=== PATIENT | female | born 1950 | race Caucasian/White ===

== ENCOUNTER 2018-12-23 08:25 | Emergency (ER) | payer MEDICARE, BC ==
[~2018-12-23] VITALS: Ht 165.1 cm; Wt 68.0 kg
[2018-12-23] MEDS ORDERED: TETRACAINE 0.5% 5 ML OPHTHALMIC DROPS LEFTEYE ONE (08:55)
[2018-12-23] MEDS ORDERED: HYDROcodone/acetaminophen 10/325mg tab PO ONE (09:10)
[2018-12-23] MEDS ORDERED: valacyclovir 500mg tablet PO STA (09:10)
[2018-12-23] MEDS ORDERED: VALA100027 PO (09:13)
[2018-12-23] MEDS ORDERED: HYDR-4383 PO (09:13)
[2018-12-23 09:38] VITALS: BP 157/96
== END 2018-12-23 09:53 | disposition home or self-care (01) ==
LOC: ER 08:27
DX: B02.9 Zoster without complications (principal); Z88.0 Allergy status to penicillin; Z79.899 Other long term (current) drug therapy; Z90.89 Acquired absence of other organs
CPT/HCPCS: 99283